=== PATIENT | female | born 1960 | race Caucasian/White ===

== ENCOUNTER 2017-12-27 11:41 | Inpatient (IN) | payer BC ==
[2017-12-27] MEDS ORDERED: Lorazepam 2 MG/ML VIAL ONE (12:02)
[2017-12-27 12:12] LABS: Lavender RECEIVED; Red RECEIVED
[2017-12-27 12:14] LABS: #Eosinphils 0.2 thou/uL (0.0-0.7); #Lymphocytes 3.7 thou/uL (1.20-3.40); #Monocytes 0.5 thou/uL (0.11-0.59); #Neutrophils 3.5 thou/uL (1.40-6.50); %Basophils 0.3 % (0.0-1.0); %Eosinophils 2.2 % (0.0-10.0); %Lymphocytes 46.8 % (21.0-51.0); %Monocytes 6.2 % (0.0-10.0); %Neutrophils 44.6 % (42.0-75.0); Hemoglobin 14.8 g/dL (12.0-16.0); Mean Corpuscular HGB CONC 34.4 g/dL (32.0-36.0); Mean Corpuscular Volume 87.3 fl (81.0-99.0); Platelet Count 293 thou/uL (130-400); RBC Distribution Width 11.6 % (11.5-14.5); Red Blood Cell (RBC) Count 4.93 mill/uL (4.20-5.40); White Blood Cell (WBC) Count 7.9 thou/uL (4.8-10.8)
[2017-12-27 12:21] LABS: PTT 27.2 SEC (22.9-36.1); Prothrombin Time 13.1 SEC (12.0-14.7)
--- NOTE | 2017-12-27 12:24 | CT ---
CT HEAD WITHOUT CONTRAST: Date: 12/27/17 Multiple axial tomograms obtained through the head without IV enhancement. INDICATION: Stroke protocol. Left side weakness and numbness. No comparison. FINDINGS: Ventricles have normal size and position. No evidence of mass or hemorrhage. No evidence of acute cor tical infarct. There are chronic ischemic changes noted in the periventricular white matter and basal ganglia regions. Sinuses and mastoids are clear. IMPRESSION: No evidence of acute cortical infarct. Findings relayed to Dr. Reich at approximately 1159 hours. CODE CR. POS: [facility]
[2017-12-27 12:27] LABS: ALT (SGPT) 23 U/L (8-55); AST (SGOT) 22 U/L (5-34); Albumin 4.4 g/dL (3.5-5.0); Alkaline Phosphatase 75 U/L (40-150); Anion Gap 12 mmol/L (10-20); BUN (Urea Nitrogen) 16 mg/dL (9.8-20.1); Bilirubin, Total 0.6 mg/dL (0.2-1.2); CKMB 1.7 ng/mL (0-6.6); Calc. Creatinine Clearance 0 mL/min (70-130); Carbon Dioxide 24 mmol/L (22-29); Chloride 105 mmol/L (98-107); Estimated GFR-MDRD 67; Globulin 3.5 g/dL (2.4-3.5); Glucose 264 mg/dL (70-105); Potassium 4.3 mmol/L (3.5-5.1); Protein, Total 7.9 g/dL (6.0-8.3); Sodium 137 mmol/L (136-145); Troponin I Less than 0.010 ng/mL (< 0.028)
--- NOTE | 2017-12-27 13:14 | CT ---
BRAIN CTA WITH 3D RENDERING NECK CTA WITH 3D RENDERING: Date: 12/27/17 HISTORY: 57-year-old female with history of stroke alert, left-sided facial numbness. FINDINGS: CT ANGIOGRAM HEAD WITH 3D RENDERING: No evidence of proximal internal carotid artery or M1 segment thrombosis. No evidence for major branc h occlusion. No evidence for aneurysm. The left posterior cerebral artery is primarily filled from le ft posterior communicator. There is some arteriosclerotic calcified plaque involving the left vertebr al artery with a somewhat generally smaller caliber right vertebral artery. IMPRESSION: No evidence for major branch occlusion. No evidence for aneurysm. Generally smaller caliber right sandeep tebral artery. Other findings as above. CT ANGIOGRAM NECK WITH 3D RENDERING: The right vertebral artery is somewhat smaller in caliber throughout compared to the left. No evidenc e for hemodynamically significant stenosis involving either the right or left common, internal, or ex ternal carotid arteries. No evidence of adenopathy or abnormal fluid collection within the neck. IMPRESSION: Slightly smaller caliber right vertebral artery compared to the left throughout its course. No eviden ce for hemodynamically significant stenosis involving right or left common, internal, or external car otid arteries. Findings discussed with Dr. Reich at 1224 hours. CODE CR. POS: [facility]
[2017-12-27] MEDS ORDERED: ISOVUE-370 76%-LOCM 1 ML ONE (13:35)
[2017-12-27] MEDS ORDERED: HYDROcodone/Acetaminophen 5/325 mg Tablet PO PRN (16:25)
[2017-12-27] MEDS ORDERED: Acetaminophen 325 MG TAB PO PRN (16:25)
[2017-12-27] MEDS ORDERED: Ondansetron ODT 4 MG TAB PO PRN (16:25)
[2017-12-27] MEDS ORDERED: hydrALAZINE 20 MG/ML VIAL SLOW IVP PRN (16:25)
[2017-12-27] MEDS ORDERED: HumaLOG 300 UNITS/3 ML VIAL SC PRN (16:45)
[2017-12-27] MEDS ORDERED: Dextrose 50% Abboject 50 ML SYRINGE SLOW IVP PRN (16:45)
[2017-12-27] MEDS ORDERED: Dextrose 5% in Water 1,000 ML IV PRN (16:45)
[2017-12-27 16:52] VITALS: BMI 37.8
--- NOTE | 2017-12-27 17:58 | HP ---
DATE OF ADMISSION: 12/27/2017 CHIEF COMPLAINT: Numbness of the left side of the arm and left side of the face. HISTORY OF PRESENT ILLNESS: This is a 57-year-old morbidly obese white female with a known history o f type 2 diabetes mellitus, hypertension, and hyperlipidemia, previous history of similar stroke-like symptoms in the past and has right eye blindness. Patient is morbidly obese. She has known history of diabetes mellitus, poorly controlled. She did relate to right eye vision loss due to retinopathy . Patient was in her usual state of health this morning. She woke up around 6:00 a.m. At 7:00 a.m. , she noticed that she was having some numbness in her left arm and also numbness in the left side of the face associated with some weakness. She denied having any headache, no nausea, no vomiting, no diarrhea, no constipation. She waited for more than 3 hours before she came to the ER and had a CT o f the head in the ER which was negative for any intracranial hemorrhage. The patient had persistent symptoms of the numbness and unable to differentiate between the hot and cold sensations on the left arm. There was no weakness noted in the left arm compared to the right arm. She denied having any c hest pain. She does not have any history of coronary artery disease. She did have similar symptoms of stroke in the past and was negative on evaluation. After discussing with the patient, she did men tion that the patient's mother had a history of multiple sclerosis and she more than 30 years ag o and she also has a history of thyroid cancer. PAST MEDICAL HISTORY: 1. Type 2 diabetes mellitus. 2. Hypertension, uncontrolled. 3. Hyperlipidemia. 4. Morbid obesity. PAST SURGICAL HISTORY: The patient had multiple surgeries in the past. 1. Cholecystectomy. 2. Appendectomy. 3. Mike fundoplication. 4. Hernia surgeries. SOCIAL HISTORY: The patient is not a nonsmoker. No history of alcohol, no history of illicit drug u se. She lives with her daughter. FAMILY HISTORY: As discussed above. FAMILY HISTORY: Patient has a family history of thyroid cancer in her mother and also has a history of multiple sclerosis and mother 30 years ago. ALLERGIES: No known drug allergies. HOME MEDICATIONS: 1. Gabapentin 300 mg p.o. daily. 2. Glimepiride 4 mg p.o. at bedtime. 3. Liraglutide 1.8 mg subQ daily. 4. Lisinopril 20 mg p.o. daily. 5. Metformin 1000 mg p.o. b.i.d. 6. Simvastatin 20 mg p.o. at bedtime. REVIEW OF SYSTEMS: All 12 systems are reviewed with the patient thoroughly and found to be negative at this time. Systems reviewed are HEENT, CVS, PER DIEM REGISTERED NURSE, respiratory, GI, , musculoskeletal, skin integ ument, psychiatric. PHYSICAL EXAMINATION: VITAL SIGNS: Blood pressures are 177/79, heart rate is 74, respiratory rate 16, saturation 98% on ro om air. GENERAL: The patient is seen lying in the bed supine, does not appear to be in acute distress. She is alert and oriented. HEENT: Atraumatic, normocephalic, PERRLA. Extraocular movements were intact. Oral mucosa is pink a nd moist. CARDIOVASCULAR: S1, S2 normal. No murmurs, rubs or gallops. LUNGS: Bilateral air entry was equal. No wheezing, no crackles. ABDOMEN: Soft, nontender, no guarding, no rebound tenderness. Bowel sounds normal. MUSCULOSKELETAL: No calf tenderness. No pedal edema. No joint tenderness, no joint swelling. SKIN: No cyanosis, no erythema, no rash, no pallor. NEUROLOGIC: Cranial nerve examination II-XII intact. No motor deficits were noted, but she does hav e persistent sensory deficits in the left upper arm, also poor differentiation between the hot and co ld. She continues to have deficits, has numbness in the left side of the face. PSYCHIATRIC: No signs of suicidal ideation. No signs of shavonne. No signs of depression. LABORATORY DATA: Sodium 137, potassium 4.3, chloride 105, BUN is 16, creatinine 0.87, blood sugar is 264. CT of the head was done which did not show any evidence of acute intracranial hemorrhage. A CT of th e [place] of [place] and CT angiography was done of bilateral neck which did not show any evidence of h emodynamically significant stenosis of the left common or internal carotid arteries. ASSESSMENT AND PLAN: 1. Transient ischemic attack. 2. Possible multiple sclerosis. 3. Type 2 diabetes mellitus, poorly controlled. 4. Hypertension, uncontrolled. 5. Hyperlipidemia. 6. Morbid obesity. 7. Right eye vision loss. PLAN: 1. Plan is to closely monitor this patient and will follow up with MRI and 2D echo to look for any e vidence of thromboembolism. Patient is on aspirin and she could not be given TPA because she came to the hospital more than 3 hours after the initial symptoms. 2. Neurology has been consulted but there is no Neurology coverage today and tomorrow. I explained this to the family. 3. We will continue with the atorvastatin at this time. 4. Patient has uncontrolled hypertension. We will allow permissive hypertension for possible ischem ic stroke. 5. We will plan to treat blood pressures if more than 160 systolic. 6. Patient has a family history of multiple sclerosis and she has a history of right vision loss, mo st likely from retinopathy, but need to rule out any evidence of multiple sclerosis symptoms or signs on the brain. We will do MRI with gadolinium to look for any evidence of MS plaques. We will also do a spinal cord MRI along with it. We will order for multiple sclerosis panel looking for IgG spike s. If needed. We will also do a spinal CSF analysis. 7. Type 2 diabetes mellitus. We will restart the patient's home medications except for metformin an d we will do a sliding scale insulin at this time. 8. DVT prophylaxis, Lovenox. I spent 75 minutes with this patient.
[2017-12-27] MEDS ORDERED: Atorvastatin Calcium 40 MG TAB PO SCH (21:00)
[2017-12-27] MEDS ORDERED: Gabapentin 300 MG CAP PO SCH (21:00)
[2017-12-28 05:24] LABS: #Basophils 0.1 thou/uL (0.0-0.2); #Eosinphils 0.2 thou/uL (0.0-0.7); #Lymphocytes 2.4 thou/uL (1.20-3.40); #Monocytes 0.3 thou/uL (0.11-0.59); #Neutrophils 2.3 thou/uL (1.40-6.50); %Basophils 1.1 % (0.0-1.0); %Eosinophils 3.4 % (0.0-10.0); %Lymphocytes 45.8 % (21.0-51.0); %Monocytes 6.1 % (0.0-10.0); %Neutrophils 43.6 % (42.0-75.0); Mean Corpuscular HGB CONC 35.1 g/dL (32.0-36.0); Mean Corpuscular Hemoglobin 30.8 pg (27.0-31.0); Mean Corpuscular Volume 87.8 fl (81.0-99.0); Platelet Count 253 thou/uL (130-400); RBC Distribution Width 11.5 % (11.5-14.5); Red Blood Cell (RBC) Count 4.53 mill/uL (4.20-5.40); White Blood Cell (WBC) Count 5.3 thou/uL (4.8-10.8)
[2017-12-28 05:39] LABS: Anion Gap 8 mmol/L (10-20); BUN (Urea Nitrogen) 13 mg/dL (9.8-20.1); Calc. Creatinine Clearance 106 mL/min (70-130); Calcium 9.2 mg/dL (7.8-10.44); Carbon Dioxide 29 mmol/L (22-29); Cardiac Risk 6.1 (Less than 4.5); Chloride 106 mmol/L (98-107); Cholesterol 219 mg/dl (< 200 Desired); Estimated GFR-MDRD 73; Glucose 213 mg/dL (70-105); HDL Cholesterol 36 mg/dL (>60 Neg Risk); LDL Cholesterol, Calculated 122 mg/dL; Potassium 4.1 mmol/L (3.5-5.1); Sodium 139 mmol/L (136-145); Triglycerides 304 mg/dL (Less than 150)
[2017-12-28] MEDS: HumaLOG 300 UNITS/3 ML VIAL SC PRN ×2 (06:13→16:08)
[2017-12-28] MEDS ORDERED: Glimepiride 4 MG TAB PO SCH (08:00)
[2017-12-28] MEDS ORDERED: Lorazepam 2 MG/ML VIAL SLOW IVP SCH (08:15)
[2017-12-28] MEDS ORDERED: Lisinopril 20 MG TAB PO SCH (09:00)
[2017-12-28] MEDS ORDERED: Valsartan 80 MG TAB PO SCH (09:00)
[2017-12-28] MEDS ORDERED: Alogliptin 25 MG TAB PO SCH (09:00)
[2017-12-28] MEDS ORDERED: Aspirin 81 mg Enteric Coated Tablet PO SCH (09:00)
[2017-12-28] MEDS ORDERED: Liraglutide [Victoza 3-Pak] 1.8 MG SC SCH (09:00)
[2017-12-28] MEDS ORDERED: Enoxaparin Sodium 40 MG/0.4 ML SYRINGE SC SCH (09:00)
[2017-12-28] MEDS: Glimepiride 4 MG TAB PO SCH ×2 (09:35→16:08)
--- NOTE | 2017-12-28 11:09 | MRI ---
PRE AND POSTCONTRAST ENHANCED MRI IMAGES OF BRAIN: HISTORY: Left-sided weakness and numbness. FINDINGS: Multiplanar multisequence pre- and postcontrast-enhanced MRI images of the brain obtained. Images demonstrate some diffuse cortical atrophy and deep white matter ischemic changes. There is an approximately 3 x 4 mm area of increased signal on the diffusion weighted sequences in th e right thalamus. This is compatible with a small area of acute infarction. A tiny white matter are a of signal abnormality is also seen along the right paracentral aspect of the genu of the corpus roxanne losum seen on image #15 on the FLAIR weighted sequences as well as image #42 on the diffusion weighte d sequences. This is compatible with an approximately 3 x 3 mm area of acute stroke as well. No oth er acute intracranial masses or lesions seen. No abnormal areas of intracranial enhancement seen. No evidence of intracranial hemorrhage is seen. IMPRESSION: Small right thalamic and paracentral genu corpus callosal white matter areas of acute infarction. POS: C
[2017-12-28 13:19] LABS: Hemoglobin A1c 10.8 % (4.0-6.0)
[2017-12-28 15:44] VITALS: BP 150/65; TEMP 98.1
[2017-12-29] MEDS ORDERED: Fenofibrate 48 MG TAB PO SCH (09:00)
--- NOTE | 2017-12-29 11:34 | DIS ---
DATE OF ADMISSION: 12/27/2017 DATE OF DISCHARGE: 12/28/2017 ADMITTING DIAGNOSIS: Acute left upper arm weakness and left side of the face weakness. 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 SECONDARY DIAGNOSES: 1. Morbid obesity. 2. Type 2 diabetes mellitus, poorly controlled. 3. Hypertriglyceridemia. HISTORY OF PRESENT ILLNESS AND HOSPITAL COURSE: In brief, this is a 57-year-old morbidly obese white female with known history of type 2 diabetes mellitus, poorly controlled and noncompliant. Patient presented to the hospital complaining of sudden onset of left-sided weakness, left upper arm weakness and left side of the face numbness. When patient presented to the ER, she had persistent symptoms, but had a CT negative. She was admitted for further evaluation with MRI of the brain which did show an evidence of a stroke involving the right thalamus and corpus callosum area. Patient had a PT, OT evaluation for inpatient rehabilitation, but the patient was able to walk and was back to her bannerin and patient wanted to go home. Patient was encouraged to continue on the diabetes management, enco uraged to lose weight. She has also had elevated triglycerides, so patient was started on Tricor elizabeth ng with atorvastatin 40 mg daily. Patient did fine. She had a swallow study, was done. It was unre markable and the patient was discharged home in stable condition. PHYSICAL EXAMINATION: VITAL SIGNS: Blood pressures are 150/65, heart rate is 85, respiration rate of 16, saturation 98%. GENERAL: The patient is moderately built and moderately nourished, does not appear to be in acute di stress. CARDIOVASCULAR: S1, S2 normal. No murmurs, rubs or gallops. LUNGS: Bilateral air entry was equal. No wheezing, no crackles. ABDOMEN: Soft, nontender, no guarding. No rebound tenderness. DISCHARGE MEDICATIONS: Sitagliptin 1 tablet p.o. daily, valsartan 1 tablet p.o. daily, glimepiride 4 mg 1 tablet p.o. b.i.d., lisinopril 20 mg p.o. daily. NEW DISCHARGE MEDICATIONS: Aspirin 81 mg p.o. daily, atorvastatin 40 mg p.o. daily, fenofibrate 48 m g p.o. daily. DISCHARGE INSTRUCTIONS: Continue activity as tolerated. Advised to follow up with the primary care physician in one week. Advised to follow up with Neurology in 1-2 weeks. Advised to continue with a cardiac and diabetic diet. Advised to continue activity as tolerated. I spent 35 minutes with this patient on the day of discharge.
== END 2017-12-28 17:35 | disposition home or self-care (01) | DRG 69 ==
LOC: ERS 11:41 → 2SE 15:38 → OBSVTOIN 15:38
PROVIDERS: ADMIT Family Medicine; ATTEND Family Medicine
DX: G45.9 Transient cerebral ischemic attack, unspecified (principal); G35 Multiple sclerosis; E11.65 Type 2 diabetes mellitus with hyperglycemia; E78.5 Hyperlipidemia, unspecified; I10 Essential (primary) hypertension; E66.01 Morbid (severe) obesity due to excess calories; H54.61 Unqualified visual loss, right eye, normal vision left eye; R20.0 Anesthesia of skin; Z85.850 Personal history of malignant neoplasm of thyroid; Z79.899 Other long term (current) drug therapy; Z79.84 Long term (current) use of oral hypoglycemic drugs; Z68.37 Body mass index [BMI] 37.0-37.9, adult
CPT/HCPCS: 36415; 36416; 70450; 70496; 70498; 70553; 80048; 80053; 80061; 82040; 82042; 82553; 82784; 83036; 83916; 84484; 85025; 85610; 85730; 93005; 93306; 96374; A4216; G8978-GP-CK; G8979-GP-CK; G8980-GP-CK; G8987-GO-CI; G8988-GO-CI; G8989-GO-CI; J1650; J2060

== ENCOUNTER 2018-02-21 11:08 | Outpatient (CLI) | payer BC | END 2018-02-21 11:09 | disposition home or self-care (01) | LOC: DTY/OP 11:08 | PROVIDERS: ATTEND Family Medicine | DX: E11.65 Type 2 diabetes mellitus with hyperglycemia (principal) | CPT/HCPCS: 97802 ==

== ENCOUNTER 2018-05-11 12:10 | Outpatient (CLI) | payer BC ==
--- NOTE | 2018-05-11 17:21 | CT ---
CT ABDOMEN AND PELVIS WITH IV AND ORAL CONTRAST: HISTORY: Abdominal pain. Gastritis. COMPARISON: 11/02/2013 FINDINGS: The lung bases are clear. The gallbladder is surgically absent. Postoperative changes, left upper q uadrant. The liver, spleen, kidneys, adrenal glands, and pancreas are within normal limits. Scatter ed calcification within the arterial structures. No evidence of bowel obstruction. The urinary blad vaibhav is unremarkable. The appendix is surgically absent. IMPRESSION: Postoperative changes. No significant abnormalities demonstrated to explain the patient's pain. POS: [facility]
== END 2018-05-11 12:11 | disposition home or self-care (01) ==
LOC: BICCT 12:10
PROVIDERS: ATTEND Internal Medicine Gastroenterology
DX: R10.84 Generalized abdominal pain (principal); K29.70 Gastritis, unspecified, without bleeding; K29.80 Duodenitis without bleeding; Z98.890 Other specified postprocedural states
CPT/HCPCS: 74177

== ENCOUNTER 2019-01-07 14:33 | Outpatient (CLI) | payer BC ==
--- NOTE | 2019-01-07 14:57 | RAD ---
XR Lumbar Spine Min 4 View History: Lumbar back pain. Sciatica. Comparison: None. Findings: Right upper quadrant surgical clips. Left upper quadrant surgical clips. 5 nonrib-bearing lumbar type vertebra. Mild narrowing of the L5/S1 disc space as well as of the L1/L2 and L2/L3 disc spaces. No listhesis. No translation with flexion or extension. Moderate facet arthrosis lower lumbar spine. Mild vascular calcifications. Impression: Arta-md-vmzhhboy degenerative change. No significant translation with flexion or extensio n.
--- NOTE | 2019-01-07 16:14 | MRI ---
MRI LUMBAR SPINE WITHOUT CONTRAST: 01/07/2019 COMPARISON: None. HISTORY: Low back pain radiating down the left leg for 8 months. TECHNIQUE: Multiplanar, multisequence MR imaging of the lumbar spine obtained without contrast. FINDINGS: Sagittal STIR imaging demonstrates no focal area of osseous marrow edema. On the basis of 5 lumbar type vertebral bodies, the conus medullaris terminates at T12-L1. T12-L1: Mild bilateral facet hypertrophy. Benign hemangioma noted at T12. No significant central c anal or neural foraminal stenosis. L1-2: Benign hemangioma noted at L1. Mild bilateral facet hypertrophy. No central canal or neural foraminal stenosis. L2-3: Mild bilateral facet hypertrophy and hypertrophy of the ligamentum flavum. No significant nay tral canal or neural foraminal stenosis. L3-4: Mild bilateral facet hypertrophy and hypertrophy of the ligamentum flavum. No significant nay tral canal stenosis. Mild bilateral neural foraminal stenosis. Benign hemangioma within the L3 vertebral body. L4-5: Disc space narrowing, disc desiccation, and mild disc bulge with no significant central canal stenosis. Mild bilateral facet hypertrophy with no significant neural foraminal stenosis. L5-S1: Mild bilateral facet hypertrophy with no significant central canal or neural foraminal stenos is. The imaged retroperitoneal structures demonstrate no acute findings. IMPRESSION: 1. Degenerative changes within the lumbar spine, as detailed above. 2. No significant central canal or neural foraminal stenosis. Transcribed Date/Time: 01/07/2019 4:37 PM
== END 2019-01-07 14:34 | disposition home or self-care (01) ==
LOC: BICMRI 14:33
PROVIDERS: ATTEND Neurological Surgery
DX: M54.40 Lumbago with sciatica, unspecified side (principal); M46.1 Sacroiliitis, not elsewhere classified; M47.816 Spondylosis without myelopathy or radiculopathy, lumbar region
CPT/HCPCS: 72110; 72148

== ENCOUNTER 2019-05-27 15:06 | Outpatient (CLI) | payer BC ==
--- NOTE | 2019-05-27 16:57 | MMO ---
Bilateral MAMMO Bilat Screen DDI+EVA. CLINICAL HISTORY: Patient is 58 years old and is seen for screening. The patient has no family history of breast cancer. The patient has no personal history of cancer. VIEWS: The views performed were: bilateral craniocaudal with tomosynthesis and bilateral mediolateral oblique with tomosynthesis. FILMS COMPARED: The present examination has been compared to a prior imaging study performed at [facility] on 07/11/2014. This study has been interpreted with the assistance of computer-aided detection. MAMMOGRAM FINDINGS: The breasts are heterogeneously dense, which could obscure a lesion on mammography. There is an asymmetry seen in the upper-outer region of the left breast. In the right breast, there are no suspicious masses, calcifications or areas of architectural distortion. IMPRESSION: ASYMMETRY IN THE LEFT BREAST REQUIRES ADDITIONAL EVALUATION. ADDITIONAL IMAGING. THE RESULTS OF THIS EXAM WERE SENT TO THE PATIENT. ACR BI-RADS Category 0 - Incomplete: Need additional imaging evaluation. [facility] will notify the patient of the need for additional imaging services. MAMMOGRAPHY NOTE: 1. A negative mammogram report should not delay a biopsy if a dominant of clinically suspicious mass is present. 2. Approximately 10% to 15% of breast cancers are not detected by mammography. 3. Adenosis and dense breasts may obscure an underlying neoplasm. Reported by: RODO GILBERT MD Electonically Signed: [id number]
== END 2019-05-27 15:07 | disposition home or self-care (01) ==
LOC: BICMAMMO 15:06
PROVIDERS: ATTEND Family Medicine
DX: Z12.31 Encounter for screening mammogram for malignant neoplasm of breast (principal); N64.89 Other specified disorders of breast
CPT/HCPCS: 77063; 77067

== ENCOUNTER 2019-06-07 12:56 | Outpatient (CLI) | payer BC ==
--- NOTE | 2019-06-07 13:32 | MMO ---
Left Breast MAMMO Unilat Diag DDI LT+EVA. CLINICAL HISTORY: Patient is 59 years old and is seen for additional evaluation requested at current screening. The patient has no family history of breast cancer. The patient has no personal history of cancer. VIEWS: The views performed were: left craniocaudal spot compression with tomosynthesis; left mediolateral oblique spot compression with tomosynthesis; and left mediolateral with tomosynthesis. FILMS COMPARED: The present examination has been compared to prior imaging studies performed at [facility] on 07/11/2014, and at [facility] on 05/27/2019 and 06/07/2019. This study has been interpreted with the assistance of computer-aided detection. MAMMOGRAM FINDINGS: The breast is heterogeneously dense, which could obscure a lesion on mammography. There is a focal asymmetry seen in the upper-outer region of the left breast. Sonography of this region is normal. A similar finding was seen on the comparison screening mammogram from 2013, though less conspicuous due to non-tomographic technique. IMPRESSION: FOCAL ASYMMETRY IN THE LEFT BREAST IS PROBABLY BENIGN. FOLLOW-UP IN 6 MONTHS IS RECOMMENDED. THE RESULTS OF THIS EXAM WERE SENT TO THE PATIENT. ACR BI-RADS Category 3 - Probably benign finding - short interval follow-up suggested. [facility] will notify the patient of the need for additional imaging services. MAMMOGRAPHY NOTE: 1. A negative mammogram report should not delay a biopsy if a dominant of clinically suspicious mass is present. 2. Approximately 10% to 15% of breast cancers are not detected by mammography. 3. Adenosis and dense breasts may obscure an underlying neoplasm. Reported by: VERONICA MTZ MD Electonically Signed: [id number]
--- NOTE | 2019-06-07 13:40 | ULT ---
LIMITED LEFT BREAST ULTRASOUND: DATE: 06/07/2019. PROVIDED CLINICAL HISTORY: Abnormal mammogram. FINDINGS: Limited sonographic interrogation was performed of the left breast in the region of mammographic conc rafy. No sonographic abnormality os present in the upper outer aspect of the left breast from the 1 t o 4 o'clock positions. IMPRESSION: BIRADS category 3 - probably benign findings. Six-month followup diagnostic left mammogram is recomm ended for findings seen only mammographically. Please see that report. POS: OFF
== END 2019-06-07 12:57 | disposition home or self-care (01) ==
LOC: BICMAMMO 12:56
PROVIDERS: ATTEND Family Medicine
DX: N64.89 Other specified disorders of breast (principal)
CPT/HCPCS: G0279

== ENCOUNTER 2020-05-28 11:30 | Outpatient (CLI) | payer OTHER ==
--- NOTE | 2020-05-28 12:12 | RAD ---
XR Lumbar Spine 2 Or 3 View History: Pain. Disability exam Comparison: Radiographs December 2018 Findings: No acute fracture of the lumbar spine. Mild narrowing of the L3/L4 and L5/S1 disc spaces. M oderate facet arthrosis L3-S1. No listhesis. Phleboliths in the pelvis. No dilated loops of large or small bowel. Impression: Moderate spondylosis. No acute abnormality.
== END 2020-05-28 11:31 | disposition home or self-care (01) ==
LOC: BICRAD 11:30
PROVIDERS: ATTEND Internal Medicine
DX: Z02.71 Encounter for disability determination (principal); M47.816 Spondylosis without myelopathy or radiculopathy, lumbar region
CPT/HCPCS: 72100

== ENCOUNTER 2022-06-16 07:52 | Day surgery (SDC) | payer OTHER ==
[2022-06-15 12:39] VITALS: BMI 39.2
[~2022-06-16 07:52] MED LIST: EPINEPHrine 0.3 MG, Dextrose 50% 3 ML in Ophthalmic Irrigation Solution 500 ML IRR SCH; Midazolam HCl 2 mg/2 ml Vial ONE; fentaNYL PF 100 MCG/2 ML SYRINGE ONE
[2022-06-16] MEDS ORDERED: Cyclopentolate 1% Opth Drop 2 ML BOT ONE (08:27)
[2022-06-16] MEDS ORDERED: Phenylephrine 2.5% Ophth Soln 5 ML BOT ONE (08:27)
[2022-06-16] MEDS ORDERED: PROPOFOL 200 MG/20 ML VIAL ONE (10:17)
[2022-06-16] MEDS ORDERED: Bupivacaine 0.75% 10 ML VIAL ONE (10:17)
[2022-06-16] MEDS ORDERED: CEFAZOLIN 1 GM VIAL ONE (10:17)
[2022-06-16] MEDS ORDERED: Lidocaine 4% PF 5 ML AMP ONE (10:17)
[2022-06-16] MEDS ORDERED: Triamcinolone 40 MG/ML VIAL ONE (10:17)
[2022-06-16] MEDS ORDERED: Lidocaine 1% PF 5 ML VIAL ONE (10:17)
[2022-06-16] MEDS ORDERED: Maxitrol 0.1% Opth Oint 3.5 GM TUBE ONE (10:17)
[2022-06-16] MEDS ORDERED: fentaNYL PF 100 MCG/2 ML SYRINGE ONE (11:51)
== END 2022-06-16 13:30 | disposition home or self-care (01) ==
LOC: SDC 07:52
PROVIDERS: ATTEND Ophthalmology Retina Specialist
PROC: 08T53ZZ Resection of Left Vitreous, Percutaneous Approach (ICD-10-PCS; principal; 2022-06-16)
PROC: 08QF3ZZ Repair Left Retina, Percutaneous Approach (ICD-10-PCS; principal; 2022-06-16)
DX: H33.42 Traction detachment of retina, left eye (principal); E11.9 Type 2 diabetes mellitus without complications; Z79.4 Long term (current) use of insulin; Z79.82 Long term (current) use of aspirin; Z79.84 Long term (current) use of oral hypoglycemic drugs; Z79.85 Long-term (current) use of injectable non-insulin antidiabetic drugs; Z79.899 Other long term (current) drug therapy
CPT/HCPCS: C1814; J0171; J0690; J2250; J2704; J3301; J3490

== ENCOUNTER 2022-07-05 16:38 | Inpatient (IN) | payer OTHER, SELFPAY ==
[~2022-07-05 16:38] MED LIST changes: -EPINEPHrine 0.3 MG, Dextrose 50% 3 ML in Ophthalmic Irrigation Solution 500 ML IRR SCH; +Iopamidol-370 76% 500 ML 1 ML ONE; -Midazolam HCl 2 mg/2 ml Vial ONE; -fentaNYL PF 100 MCG/2 ML SYRINGE ONE
[2022-07-05 17:07] LABS: #Basophils 0.1 thou/uL (0.0-0.2); #Eosinphils 0.2 thou/uL (0.0-0.7); #Lymphocytes 3.9 thou/uL (1.20-3.40); #Monocytes 0.7 thou/uL (0.11-0.59); #Neutrophils 5.6 thou/uL (1.40-6.50); %Basophils 0.8 % (0.0-1.0); %Lymphocytes 37.3 % (21.0-51.0); %Monocytes 7.1 % (0.0-10.0); %Neutrophils 52.8 % (42.0-75.0); Hemoglobin 14.7 g/dL (12.0-16.0); Mean Corpuscular HGB CONC 34.2 g/dL (32.0-36.0); Mean Corpuscular Hemoglobin 31.1 pg (27.0-31.0); Mean Corpuscular Volume 91.1 fl (78.0-98.0); Mean Platelet Volume 7.5 fL (7.4-10.4); Platelet Count 299 10x3/uL (130-400); RBC Distribution Width 11.3 % (11.5-14.5); Red Blood Cell (RBC) Count 4.72 mill/uL (4.20-5.40); White Blood Cell (WBC) Count 10.5 10x3/uL (4.8-10.8)
[2022-07-05 17:26] LABS: ALT (SGPT) 29 U/L (8-55); AST (SGOT) 28 U/L (5-34); Albumin 4.5 g/dL (3.4-4.8); Alkaline Phosphatase 74 U/L (40-110); Anion Gap 13 mmol/L (10-20); BUN (Urea Nitrogen) 35 mg/dL (9.8-20.1); Bilirubin, Total 0.7 mg/dL (0.2-1.2); Calc. Creatinine Clearance 0 mL/min (70-130); Calcium 10.1 mg/dL (7.8-10.44); Carbon Dioxide 28 mmol/L (23-31); Chloride 104 mmol/L (98-107); Estimated GFR 49; Globulin 3.6 g/dL (2.4-3.5); Glucose 174 mg/dL (80-115); Potassium 4.6 mmol/L (3.5-5.1); Protein, Total 8.1 g/dL (5.8-8.1); Sodium 140 mmol/L (136-145)
[2022-07-05 17:27] LABS: PTT 28.3 sec (22.9-36.1); Prothrombin Time 13.2 sec (12.0-14.7)
[2022-07-05] MEDS ORDERED: Aspirin Chewable 81 MG TAB ONE (18:51)
[2022-07-05 19:25] LABS: Bacteria/HPF 2+ HPF (None Seen); Bilirubin Negative (Negative); Blood, Urine Negative (Negative); Clarity Turbid (Clear); Glucose, Urine (Dipstick) Normal (Negative); Ketone, Urine Negative (Negative); Leukocyte 75 Leu/uL (Negative); Nitrite Negative (Negative); Protein, Urine (Dipstick) 10 mg/dL (Neg-Trace); RBC/HPF 0-3 HPF (0-3); Urobilinogen Normal mg/dL (Less than 2); WBC/HPF 21-50 HPF (0-3); pH, Urine 5.5 (5.0-9.0)
[2022-07-05] MEDS ORDERED: Dextrose 5% in Water 1,000 ML IV PRN (20:12)
[2022-07-05] MEDS ORDERED: HumaLOG 300 UNITS/3 ML VIAL SC PRN (20:12)
[2022-07-05] MEDS ORDERED: Dextrose 50% Abboject 50 ML SYRINGE SLOW IVP PRN (20:12)
[2022-07-05] MEDS ORDERED: Sertraline 25 MG TAB PO SCH (20:30)
[2022-07-05] MEDS: Sodium Chloride 0.9% 1,000 ML IV SCH (22:16)
[2022-07-05] MEDS: Insulin Glargine 30 UNITS/0.3 ML VIAL SC SCH (22:18)
[2022-07-05] MEDS: Rosuvastatin 20 MG TAB PO SCH (22:18)
[2022-07-05 23:28] VITALS: BMI 38.9
[2022-07-06 06:11] LABS: Cardiac Risk 3.7 (Less than 4.5)
[2022-07-06] MEDS: Clopidogrel Bisulfate 75 MG TAB PO SCH ×3 (08:50→09:00)
[2022-07-06] MEDS ORDERED: Aspirin 325 mg Enteric Coated Tablet PO SCH (09:00)
[2022-07-06] MEDS ORDERED: Enoxaparin Sodium 30 MG/0.3 ML SYRINGE SC SCH (09:00)
[2022-07-06] MEDS: Lorazepam 0.5 MG TAB PO PRN ×2 (11:29→12:15)
[2022-07-06] MEDS ORDERED: Non-Formulary Item 1 EACH (Dulaglutide [Trulicity] 1.5 MG/0.5 ML Pen.Injctr) SC SCH (14:30)
[2022-07-06] MEDS ORDERED: ALPRAZolam 1 MG TAB PO PRN (16:32)
[2022-07-06] MEDS: Sodium Chloride 0.9% 1,000 ML IV SCH (17:11)
[2022-07-06] MEDS: Glimepiride 4 MG TAB PO SCH (17:11)
[2022-07-06 17:14] LABS: Anion Gap 14 mmol/L (10-20); BUN (Urea Nitrogen) 29 mg/dL (9.8-20.1); Calc. Creatinine Clearance 80 mL/min (70-130); Calcium 9.3 mg/dL (7.8-10.44); Carbon Dioxide 24 mmol/L (23-31); Chloride 105 mmol/L (98-107); Estimated GFR 62; Glucose 98 mg/dL (80-115); Potassium 4.2 mmol/L (3.5-5.1); Sodium 139 mmol/L (136-145)
[2022-07-06] MEDS ORDERED: hydrALAZINE 20 MG/ML VIAL SLOW IVP PRN (18:09)
[2022-07-06] MEDS ORDERED: Sertraline 25 MG TAB PO SCH (19:00)
[2022-07-06] MEDS: Insulin Glargine 30 UNITS/0.3 ML VIAL SC SCH (20:42)
[2022-07-06] MEDS: Rosuvastatin 20 MG TAB PO SCH (20:42)
[2022-07-07 06:07] LABS: Anion Gap 12 mmol/L (10-20); BUN (Urea Nitrogen) 22 mg/dL (9.8-20.1); Calc. Creatinine Clearance 77 mL/min (70-130); Calcium 9.1 mg/dL (7.8-10.44); Carbon Dioxide 26 mmol/L (23-31); Chloride 104 mmol/L (98-107); Estimated GFR 59; Glucose 170 mg/dL (80-115); Potassium 3.7 mmol/L (3.5-5.1); Sodium 138 mmol/L (136-145)
[2022-07-07] MEDS: Glimepiride 4 MG TAB PO SCH ×2 (08:42→18:12)
[2022-07-07] MEDS: Clopidogrel Bisulfate 75 MG TAB PO SCH (08:43)
[2022-07-07] MEDS ORDERED: Aspirin 81 mg Enteric Coated Tablet PO SCH (09:00)
[2022-07-07] MEDS ORDERED: Losartan 25 MG TAB PO SCH (09:00)
[2022-07-07] MEDS ORDERED: Enoxaparin Sodium 40 MG/0.4 ML SYRINGE SC SCH (09:00)
[2022-07-07] MEDS ORDERED: Atenolol 50 MG TAB PO SCH (09:00)
[2022-07-07] MEDS ORDERED: Acetaminophen 325 MG TAB PO PRN (10:21)
[2022-07-07 15:58] VITALS: TEMP 97
[2022-07-07 15:59] VITALS: BP 131/80
[2022-07-07] MEDS ORDERED: Sertraline 25 MG TAB PO SCH (21:00)
== END 2022-07-07 17:05 | disposition home or self-care (01) | DRG 69 ==
LOC: ERS 16:38 → NEURO 18:43 → OBSVTOIN 07-06 17:01
PROVIDERS: ADMIT Internal Medicine Nephrology; ATTEND Internal Medicine
DX: G45.9 Transient cerebral ischemic attack, unspecified (principal); N17.9 Acute kidney failure, unspecified; E11.65 Type 2 diabetes mellitus with hyperglycemia; E11.319 Type 2 diabetes mellitus with unspecified diabetic retinopathy without macular edema; E78.5 Hyperlipidemia, unspecified; E11.22 Type 2 diabetes mellitus with diabetic chronic kidney disease; I12.9 Hypertensive chronic kidney disease with stage 1 through stage 4 chronic kidney disease, or unspecified chronic kidney disease; H54.8 Legal blindness, as defined in USA; Z79.84 Long term (current) use of oral hypoglycemic drugs; Z79.899 Other long term (current) drug therapy
CPT/HCPCS: 36415; 36416; 70450; 70496; 70498; 70551; 71045; 80048; 80053; 80061; 81003; 81015; 83036; 83090; 84484; 85025; 85610; 85730; 93005; 93306; 94760; 96372; G0378; J1650; J1815; J7050; Q9967; U0003; U0005

== ENCOUNTER 2022-11-17 07:55 | Day surgery (SDC) | payer OTHER ==
[2022-11-16 11:34] VITALS: BMI 39.2
[~2022-11-17 07:55] MED LIST changes: +EPINEPHrine 0.3 MG, Dextrose 50% 3 ML in Ophthalmic Irrigation Solution 500 ML IRR SCH; -Iopamidol-370 76% 500 ML 1 ML ONE
[2022-11-17] MEDS ORDERED: Cyclopentolate 1% Opth Drop 2 ML BOT ONE (08:43)
[2022-11-17] MEDS ORDERED: Phenylephrine 2.5% Ophth Soln 5 ML BOT ONE (08:44)
[2022-11-17] MEDS ORDERED: Lidocaine 1% MPF 2 ML VIAL ONE (08:44)
[2022-11-17] MEDS ORDERED: fentaNYL 50 mcg/mL 1 mL Vial ONE (09:18)
[2022-11-17] MEDS ORDERED: Midazolam HCl 2 mg/2 ml Vial ONE (09:18)
[2022-11-17] MEDS ORDERED: Insulin Regular 300 UNITS/3 ML VIAL ONE (09:24)
[2022-11-17] MEDS ORDERED: Bupivacaine 0.75% 10 ML VIAL ONE (09:35)
[2022-11-17] MEDS ORDERED: CEFAZOLIN 1 GM VIAL ONE (09:35)
[2022-11-17] MEDS ORDERED: Maxitrol 0.1% Opth Oint 3.5 GM TUBE ONE (09:35)
[2022-11-17] MEDS ORDERED: Lidocaine 4% PF 5 ML AMP ONE (09:35)
[2022-11-17] MEDS ORDERED: PROPOFOL 200 MG/20 ML VIAL ONE (09:35)
[2022-11-17] MEDS ORDERED: Triamcinolone 40 MG/ML VIAL ONE (09:35)
[2022-11-17] MEDS ORDERED: Dextrose 50% Abboject 50 ML SYRINGE ONE (09:35)
[2022-11-17] MEDS ORDERED: Lidocaine 1% PF 5 ML VIAL ONE (09:35)
== END 2022-11-17 11:55 | disposition home or self-care (01) ==
LOC: SDC 07:55
PROVIDERS: ATTEND Ophthalmology Retina Specialist
PROC: 08NF3ZZ Release Left Retina, Percutaneous Approach (ICD-10-PCS; principal; 2022-11-17)
PROC: 08T53ZZ Resection of Left Vitreous, Percutaneous Approach (ICD-10-PCS; principal; 2022-11-17)
DX: H43.392 Other vitreous opacities, left eye (principal); H35.372 Puckering of macula, left eye; H43.12 Vitreous hemorrhage, left eye; E11.9 Type 2 diabetes mellitus without complications
CPT/HCPCS: 36416; J0171; J0690; J1815; J2250; J2704; J3010; J3301; J3490; J7999